=== PATIENT | male | born 1985 ===

== ENCOUNTER 2022-11-01 23:39 | Emergency (ER) | payer SELFPAY ==
[2022-11-01 23:43] VITALS: BP 127/71; PULSE 67; RESP 16; TEMP 36.8; O2SAT 100
--- NOTE | 2022-11-02 01:10 | PC.NURSE ---
pt. to lead front desk agent stating my severe abd pain is gone. I am going to go.
[2022-11-02 01:16] LABS: Appearance Urine Clear (Clear); Bilirubin Urine Negative (Negative); Blood Urine Negative (Negative); Color Urine Yellow (Yellow); Glucose Urine UA Negative (Negative); Ketones Urine Negative (Negative); Leukocyte Esterase Ur Negative LEU/UL (Negative); Nitrate Urine Negative (Negative); Protein Urine Negative (Negative); Specific Grav Ur 1.022 (1.001-1.035); Urobilinogen Urine 0.2 mg/dL (<2.0); pH Urine 5.5 (5.0-9.0)
[2022-11-02 01:23] LABS: Add Urine Microscopic? NO
== END 2022-11-02 01:10 | disposition left against medical advice (07) ==
LOC: ANHED 11-02 01:17
PROVIDERS: Emergency Provider Emergency Medicine
DX: R10.9 Unspecified abdominal pain (principal)
CPT/HCPCS: 81003; 99199